=== PATIENT | female | born 1945 | race Caucasian/White ===

== ENCOUNTER 2018-04-17 15:55 | Outpatient (REF) | payer MEDICARE, SELFPAY ==
--- NOTE | 2018-04-17 14:45 | SKI_PTH ---
PATIENT: Alondra Gross LOC: [facility] U#:[id number] AGE/SX: 72/F ROOM: RE04/17/[address]: Lamar Berger : 1945 BED: DIS: 04/17/2018 SPEC #: [id number] RECD: 04/18/18 12:33 STATUS: AUBREY REQ #: [id number] ASHU: 04/17/18 14:[address]: Lamar Beregr DEPT: Surgical Specimen RECD BY: Dennise Newell ENTERED: 04/18/18 12:35 SP TYPE: SKYLAR BLOOD DR: Unknown,Unknown Tissues: 1 - SKIN BIOPSY(SHAVE/PUNCH) Procedures: SKIN LEVEL 4 Comments: [id number]
== END 2018-04-17 16:15 ==
LOC: NCHCN 15:55
PROVIDERS: Visit Provider Nurse Practitioner Family
DX: L72.0 Epidermal cyst (principal)
CPT/HCPCS: 88305

== ENCOUNTER 2019-10-28 16:34 | Outpatient (REF) | payer MEDICARE, SELFPAY ==
[2019-10-28 18:15] LABS: HCT 40.2 % (36.0-46.0); HGB 12.8 g/dL (12.0-15.5); Mean Corp. HGB Concentration 31.8 g/dL (32.0-36.0); Mean Corpuscular Hemoglobin 29.5 pg (27.0-33.0); Mean Corpuscular Volume 92.6 fL (80-95); Platelet Count 318 x1000/uL (130-400); RBC 4.34 m/cumm (4.00-5.20); RBC Distribution Width 14.3 % (11.7-14.6); White Blood Cell Count 10.33 k/cumm (4.4-10.8)
[2019-10-28 18:22] LABS: Lithium 0.92 mmol/L (0.60-1.20)
[2019-10-28 18:36] LABS: ALT 24 U/L (14-59); AST 17 U/L (15-37); Albumin 4.2 g/dL (3.4-5.0); Alkaline Phosphatase 81 U/L (46-116); BUN 17 mg/dL (7-18); Bilirubin, Total 0.4 mg/dL (0.2-1.0); Calcium 10.4 mg/dL (8.5-10.1); Chloride 103 mmol/L (98-107); Glucose 102 mg/dL (74-106); Potassium 4.6 mmol/L (3.5-5.1); Sodium 139 mmol/L (136-145); TSH (W/Ref FT4) 4.47 uIU/mL (0.36-3.74); Total Protein 7.7 g/dL (6.4-8.2)
[2019-10-28 18:55] LABS: FREE T4 0.92 ng/dL (0.76-1.46)
== END 2019-10-28 16:54 ==
LOC: NCHCN 16:34
PROVIDERS: PCP Nurse Practitioner Family; Visit Provider Nurse Practitioner Family
DX: F31.30 Bipolar disorder, current episode depressed, mild or moderate severity, unspecified (principal); Z51.81 Encounter for therapeutic drug level monitoring; Z79.899 Other long term (current) drug therapy
CPT/HCPCS: 80053; 85027; 80178; 84439; 84443

== ENCOUNTER 2019-11-05 13:31 | Outpatient (CLI) | payer MEDICARE, SELFPAY ==
--- NOTE | 2019-11-05 | DI.CT_ITS ---
EXAM: CT ABDOMEN PELVIS WO CLINICAL HISTORY: SEVERE FLANK PAIN RT, R10.9, HYPERCALCEMIA, ? STONE. TECHNIQUE: Imaging Protocol: Axial computed tomography images with coronal and sagittal reformatted images were created and reviewed. Oral: no COMPARISON: None FINDINGS: ABDOMEN: Lung Bases: Minimal scarring versus atelectasis.. The heart size is normal. Liver: Normal density. No measurable mass. Gallbladder and biliary tract: No radiodense calculus or dilation. Pancreas: Normal density, no abnormal calcifications or inflammatory process. Spleen: Normal. Kidneys: Normal size, contour and axis. No radiodense stones or obstructive uropathy. No masses seen. Adrenal glands: No masses seen. Lymph nodes: Within normal limits. Abdominal Aorta: Abdominal portion non-dilated. PELVIS: Bladder: Nearly empty but unremarkable.. Bowel: No obstruction or bowel wall thickening. There is a moderate to increased quantity of stool se en throughout the colon. Peritoneal cavity: No ascites, collection or mesenteric inflammatory response. Reproductive organs: Calcified uterine fibroid.. Bones: Degenerative disc changes in the lumbar spine. IMPRESSION: No evidence of urinary tract calculi or hydronephrosis. Moderate to increased quantity of stool is s een. DATA REPOSITORY: All CT scans at this facility are submitted to the National Radiology Data Registry (NRDR) Dose Index Registry (DIR) with the [employer] ([employer]). RADIATION OPTIMIZATION: All CT scans at this facility use at least one of these dose optimization te chniques: automated exposure control; mA and/or kV adjustment per patient size (includes targeted exa ms where dose is matched to clinical indication); or iterative reconstruction.
== END 2019-11-05 13:51 ==
PROVIDERS: PCP Nurse Practitioner Family; Visit Provider Family Medicine
DX: R10.84 Generalized abdominal pain (principal); D25.9 Leiomyoma of uterus, unspecified; K59.00 Constipation, unspecified
CPT/HCPCS: 74176

== ENCOUNTER 2019-11-25 11:01 | Outpatient (REF) | payer MEDICARE, SELFPAY ==
[2019-11-25 16:11] LABS: HCT 38.4 % (36.0-46.0); HGB 12.4 g/dL (12.0-15.5); Lithium 1.09 mmol/L (0.60-1.20); Mean Corp. HGB Concentration 32.3 g/dL (32.0-36.0); Mean Corpuscular Hemoglobin 29.5 pg (27.0-33.0); Mean Corpuscular Volume 91.4 fL (80-95); Mean Platelet Volume 10.5 fL (8.0-11.0); Platelet Count 301 x1000/uL (130-400); White Blood Cell Count 6.78 k/cumm (4.4-10.8)
[2019-11-25 16:26] LABS: ALT 20 U/L (14-59); AST 15 U/L (15-37); Albumin 4.2 g/dL (3.4-5.0); Alkaline Phosphatase 72 U/L (46-116); Anion Gap 6.9 mmol/L (3-11); BUN 18 mg/dL (7-18); Bilirubin, Total 0.6 mg/dL (0.2-1.0); CO2 27.1 mmol/L (21.0-32.0); CREATININE 0.91 mg/dL (0.55-1.02); Calcium 9.7 mg/dL (8.5-10.1); Chloride 101 mmol/L (98-107); Glucose 98 mg/dL (74-106); Potassium 4.1 mmol/L (3.5-5.1); Sodium 135 mmol/L (136-145); TSH (W/Ref FT4) 8.16 uIU/mL (0.36-3.74); Total Protein 7.4 g/dL (6.4-8.2)
[2019-11-25 16:45] LABS: FREE T4 0.91 ng/dL (0.76-1.46)
== END 2019-11-25 11:21 ==
LOC: NCHCN 11:01
PROVIDERS: PCP Nurse Practitioner Family; Visit Provider Nurse Practitioner Family
DX: E83.52 Hypercalcemia (principal); Z51.81 Encounter for therapeutic drug level monitoring; Z79.899 Other long term (current) drug therapy
CPT/HCPCS: 80053; 85027; 80178; 84439; 84443

== ENCOUNTER 2019-12-27 10:49 | Outpatient (REF) | payer MEDICARE, SELFPAY ==
[2019-12-27 16:58] LABS: Lithium 0.66 mmol/L (0.60-1.20)
[2019-12-27 17:00] LABS: Anion Gap 8.9 mmol/L (3-11); BUN 22 mg/dL (7-18); CO2 26.1 mmol/L (21.0-32.0); CREATININE 1.03 mg/dL (0.55-1.02); Calcium 9.5 mg/dL (8.5-10.1); Chloride 102 mmol/L (98-107); Estimated GFR 52.67 (mL/min/1.73m2); Glucose 133 mg/dL (74-106); Potassium 4.3 mmol/L (3.5-5.1); Sodium 137 mmol/L (136-145)
== END 2019-12-27 11:09 ==
LOC: NCHCN 10:49
PROVIDERS: PCP Nurse Practitioner Family; Visit Provider Nurse Practitioner Psychiatric/Mental Health
DX: F31.30 Bipolar disorder, current episode depressed, mild or moderate severity, unspecified (principal); Z51.81 Encounter for therapeutic drug level monitoring; Z79.899 Other long term (current) drug therapy
CPT/HCPCS: 80048; 80178

== ENCOUNTER 2020-01-02 02:59 | Outpatient (CLI) | payer MEDICARE, SELFPAY ==
--- NOTE | 2020-01-02 | DI.MRI_ITS ---
EXAM: MR LUMBAR SPINE WO CLINICAL HISTORY: ACUTE LOW BACK PAIN, M54.5. TECHNIQUE: Multiplanar multisequence MRI of the Lumbar spine was performed. COMPARISON: CT CT ABDOMEN PELVIS WO from 11/05/2019 FINDINGS: Bones: The last intervertebral disc space is designated the L5/S1 level for the numbering purpose of this examination. The vertebral body heights are well maintained. There is a slight degenerative s coliosis. Hemangiomas are noted in the T12 and L1 vertebral bodies. There is some red marrow reconv ersion. There are degenerative signal changes in the endplates greatest at L1-2. Cord: The conus tip ends at the T12 level. It is of normal size and signal intensity. T12-L1: No disc herniations or bulges are present. No central spinal canal or neural foraminal stenos is. L1-2: There is severe narrowing of the L1-2 disc. There is concentric disc bulging and endplate oste ophytes. There are mild facet degenerative changes. There is mild bilateral neural foraminal narrow ing but no significant central canal stenosis. L2-3: There is marked narrowing of the L2-3 disc space. There are endplate osteophytes and concentri c disc bulging. There are mild facet joint degenerative changes. There is mild narrowing of the baldo tral canal but no significant neural foraminal narrowing. L3-4: There is mild loss of disc height and broad-based disc bulging. There are small endplate osteo phytes. There are njvr-ei-uwvhjldd facet degenerative changes. There is [id number] bilateral neural foraminal narrowing and mild central canal stenosis. L4-5: There is moderate loss of disc height and mild broad-based disc bulging and small endplate oste ophytes. There are mild facet joint degenerative changes. There is mild right neural foraminal narr owing and mild central canal stenosis. L5-S1: No disc herniations or bulges are present. There are mild facet degenerative changes. No baldo tral spinal canal or neural foraminal stenosis. Soft tissues: The visualized SI joints and sacrum are well maintained. The paraspinal soft tissues ar e unremarkable. The aorta is normal in diameter. IMPRESSION: Multilevel degenerative disc changes. No evidence of a focal disc herniation. DATA REPOSITORY:
== END 2020-01-02 03:19 ==
PROVIDERS: PCP Nurse Practitioner Family; Visit Provider Nurse Practitioner Family
DX: M54.5 Low back pain (principal); M51.36 Other intervertebral disc degeneration, lumbar region
CPT/HCPCS: 72148

== ENCOUNTER 2020-05-19 18:33 | Outpatient (REF) | payer MEDICARE, SELFPAY ==
[2020-05-24 22:50] LABS: Patient Race White; SARS-CoV-2 RNA Undetected (Undetected); SARS-CoV-2 Specimen Source Nasal
== END 2020-05-19 18:53 ==
LOC: NCHCN 18:33
PROVIDERS: PCP Nurse Practitioner Family; Visit Provider Nurse Practitioner Family
DX: Z20.828 Contact with and (suspected) exposure to other viral communicable diseases (principal)
CPT/HCPCS: U0003

== ENCOUNTER 2021-07-13 19:23 | Outpatient (REF) | payer MEDICARE, SELFPAY ==
[2021-07-13 20:19] LABS: HCT 41.3 % (36.0-46.0); HGB 13.2 g/dL (11.2-15.7); MCH 29.9 pg (27.0-33.0); MCV 93.4 fL (80-95); MPV 10.2 fL (8.0-11.0); Platelet Count 270 10^3/uL (130-400); RBC 4.42 10^6/uL (3.93-5.22); RDW 14.7 % (11.7-14.6); RDW-SD 51.3 fL; WBC 8.49 10^3/uL (4.4-10.8)
[2021-07-13 20:42] LABS: ALT 16 U/L (14-59); AST 9 U/L (15-37); Albumin 3.6 g/dL (3.4-5.0); Alkaline Phosphatase 99 U/L (46-116); Anion Gap 10.4 mmol/L (3-11); BUN 16 mg/dL (7-18); Bilirubin, Total 0.2 mg/dL (0.2-1.0); CO2 24.6 mmol/L (21.0-32.0); CREATININE 0.6 mg/dL (0.55-1.02); Calcium 8.8 mg/dL (8.5-10.1); Chloride 103 mmol/L (98-107); Glucose 83 mg/dL (74-106); Potassium 4.1 mmol/L (3.5-5.1); Sodium 138 mmol/L (136-145); Total Protein 7.4 g/dL (6.4-8.2)
== END 2021-07-13 19:24 | disposition home or self-care (01) ==
LOC: NCHCN 19:23
PROVIDERS: PCP Nurse Practitioner Family; Visit Provider Physician Assistant
DX: F10.20 Alcohol dependence, uncomplicated (principal)
CPT/HCPCS: 80053; 85027

== ENCOUNTER 2023-01-25 16:08 | Outpatient (REF) | payer MEDICARE, SELFPAY ==
[2023-01-25 19:32] LABS: HCT 37.7 % (36.0-46.0); HGB 12.3 g/dL (11.2-15.7); MCH 29.8 pg (27.0-33.0); MCHC 32.6 % (32.0-36.0); MCV 91 fL (80-95); MPV 10.2 fL (8.0-11.0); Platelet Count 289 10^3/uL (130-400); RBC 4.13 10^6/uL (3.93-5.22); RDW-SD 43.9 fL; WBC 6.71 10^3/uL (4.4-10.8)
[2023-01-25 20:01] LABS: ALT 19 U/L (14-59); AST 18 U/L (15-37); Albumin 4.2 g/dL (3.4-5.0); Alkaline Phosphatase 88 U/L (46-116); Anion Gap 8.9 mmol/L (3-11); BUN 17 mg/dL (7-18); Bilirubin, Total 0.5 mg/dL (0.2-1.0); CO2 28.1 mmol/L (21.0-32.0); CREATININE 0.9 mg/dL (0.55-1.02); Calcium 9.2 mg/dL (8.5-10.1); Chloride 101 mmol/L (98-107); Estimated GFR 66.67 (mL/min/1.73m2); FREE T4 0.85 ng/dL (0.76-1.46); Glucose 79 mg/dL (74-106); Potassium 4.5 mmol/L (3.5-5.1); Sodium 138 mmol/L (136-145); TSH 1.84 uIU/mL (0.36-3.74); Total Protein 7.5 g/dL (6.4-8.2)
== END 2023-01-25 16:09 | disposition home or self-care (01) ==
LOC: NCHCN 16:08
PROVIDERS: Visit Provider Physician Assistant
DX: E07.89 Other specified disorders of thyroid (principal)
CPT/HCPCS: 80053; 85027; 84439; 84443